=== PATIENT | male | born 1985 | race Caucasian/White ===

== ENCOUNTER 2021-04-29 12:59 | Emergency (ER) | payer OTHER ==
[~2021-04-29] VITALS: Ht 177.8 cm; Wt 134.2 kg
[2021-04-29 13:28] VITALS: BP 119/89
[2021-04-29] MEDS ORDERED: LIDOCAINE/EPI/TETRACAINE TOPICAL GEL 3 ML. TP ONE ×2 (14:00→15:02)
--- NOTE | 2021-04-29 14:12 | PHYS DOC ---
Past Medical History Past Surgical History: Other Additional Past Surgical Histo: ear surgery as a child (ANDRES MOCTEZUMAJacki Hoff RN [facility]) Smoking Status: Never Smoker Alcohol Use: None Social History Narrative: PREVIOUS METH AND MARIJUANA DRUG USE OVER 1 YEAR AGO. (DEMETRIA MOCTEZUMATIFFANIE Hoff RN [facility]) General Adult EDM: Chief Complaint: LACERATION/AVULSION HPI: HPI: Patient is a 36 year old male who presents with here from [facility] when he was sitting on a bunk anyway coming back and hit his head on the back of a metal bar. Rates pain a 2 out of 10. Denies LOC or blood thinners. States his tetanus is up-to-date. (DEMETRIA MOCTEZUMATIFFANIE Hoff RN [facility]) Review of Systems: Review of Systems: Constitutional: Denies fever or chills. [] Eyes: Denies change in visual acuity. [] HENT: Denies nasal congestion or sore throat. [] Respiratory: Denies cough or shortness of breath. [] Cardiovascular: Denies chest pain or edema. [] GI: Denies abdominal pain, nausea, vomiting, bloody stools or diarrhea. [] : Denies dysuria. [] Musculoskeletal: Denies back pain or joint pain. [] Integument: Denies rash. + Laceration to scalp [] Neurologic: +headache, denies focal weakness or sensory changes. [] Endocrine: Denies polyuria or polydipsia. [] Lymphatic: Denies swollen glands. [] Psychiatric: Denies depression or anxiety. [] (AZRASHRUTI RN [facility]) Heart Score: C/O Chest Pain: No (RHIANNASHRUTITIFFANIE Hoff APRN) Current Medications: Current Medications Medications (Trade) Dose Ordered Sig/Wicho Start Time Stop Time Status Last Admin Dose Admin Tetracaine/ Epinephrine/ Lidocaine (Let (Babg-[id number]-[id number]) Gel) 3 ml 1X ONCE 04/29/21 14:00 04/29/21 14:01 UNV (RHIANNASHRUTI M RN [facility]) Physical Exam: PE: Constitutional: Well developed, well nourished, no acute distress, non-toxic appearance. [] HENT: Normocephalic, atraumatic, bilateral external ears normal, oropharynx moist, no oral exudates, nose normal. [] Eyes: PERRLA, EOMI, conjunctiva normal, no discharge. [] Neck: Normal range of motion, no tenderness, supple, no stridor. [] Cardiovascular:Heart rate regular rhythm, no murmur [] Lungs & Thorax: Bilateral breath sounds clear to auscultation [] Abdomen: Bowel sounds normal, soft, no tenderness, no masses, no pulsatile masses. [] Skin: Warm, dry, no erythema, no rash. Scalp laceration approximately 2- 2 1/2 inches long. [] Back: No tenderness, no CVA tenderness. [] Extremities: No tenderness, no cyanosis, no clubbing, ROM intact, no edema. [] Neurologic: Alert and oriented X 3, normal motor function, normal sensory function, no focal deficits noted. [] Psychologic: Affect normal, judgement normal, mood normal. [] (SHRUTI MOCTEZUMA APRN) Current Patient Data: Vital Signs: Vital Signs Date Time Temp Pulse Resp B/P (MAP) Pulse Ox O2 Delivery O2 Flow Rate FiO2 04/29/21 13:28 98.1 107 16 119/89 (99) 99 Room Air 98.1 (SHRUTI MOCTEZUMA APRN) EKG: EKG: [] (SHRUTI MOCTEZUMA APRN) Radiology/Procedures: Radiology/Procedures: [] Impression: [facility] [address] [place], [place] [id number] IMAGING REPORT Signed PATIENT: ABBI CHENG ACCOUNT: [id number] : 1985 LOCATION: ER AGE: 36 SEX: M EXAM STATUS: REG ER ORD. PHYSICIAN: SHRUTI MOCTEZUMA APRN REASON: HEAD INJURY, LACERATION PROCEDURE: CT HEAD WO CONTRAST EXAM: CT Head without IV contrast CLINICAL HISTORY: HEAD INJURY, LACERATION COMPARISON: None. TECHNIQUE: Routine CT of the head without contrast. PQRS compliance statement - One or more of the following individualized dose reduction techniques were utilized for this study: 1. Automated exposure control 2. Adjustment of the mA and/or kV according to patient size 3. Use of iterative reconstruction technique FINDINGS: There is no evidence of hemorrhage, mass or extra-axial fluid collection. Manjarrez-white differentiation is maintained with no evidence of edema. There is no mass effect or shift of the intracranial structures. The ventricles, basilar cisterns and cortical sulci are normal in size and configuration for the patients stated age. The cerebellum and brainstem are unremarkable. The calvarium demonstrates no evidence of fracture or focal lesion. There is normal aeration of the visualized paranasal sinuses and mastoid air cells. The visualized portions of the orbits are normal. IMPRESSION: No evidence for acute intracranial process. Electronically signed by: Navid Rocha MD (04/29/2021 3:17 PM) [facility]ENTER[facility]SEFINA DICTATED and SIGNED BY: NAVID ROCHA MD DATE: 04/29/21 [id number] (SHRUTI MOCTEZUMA APRN) Course & Med Decision Making: Course & Med Decision Making Pertinent Labs and Imaging studies reviewed. (See chart for details) See HPI. Alert and oriented x4. Speaks in full clear sentences. Ambulatory with a steady gait. No cervical spine tenderness. Full range of motion of his neck. Denies any neck pain, back pain, chest pain, headache, dizziness, vision change, numbness or tingling, nausea, vomiting. Bleeding controlled. Laceration repair Location: 2 inches back of head Local anesthesia: LETs Interrupted sutures/Internal sutures: 6 sutures Nerve/ligament/muscle damage: None Cleaning and irrigation: Chlorhexidine and saline The appropriate timeout was taken. The area was prepped and draped in the usual sterile fashion. The wound was copiously irrigated with normal saline and chlorhexidine. Patient tolerated well without complication. Dressing was applied to the area follow-up education is given to observe for signs and symptoms of infection, bleeding and to follow-up promptly if these occur. Patient can return in 48 hours for a wound recheck. Sutures to be removed in 7 to 10 days. [] (SHRUTI MOCTEZUMA APRN) Course & Med Decision Making I have reviewed the PA/PHLEBOTOMY SUPPORT TECH's note and plan of care. I was available for consultation as needed during the patient's visit in the emergency department. I agree with the clinical impression, plan, and disposition. Clarification: The patient had surekha placed rather than suture. (BASIL GAONA MD) Sinan Disclaimer: Sinan Disclaimer: This electronic medical record was generated, in whole or in part, using a voice recognition dictation system. (SHRUTI MOCTEZUMA APRN) Departure Departure Impression: Primary Impression: Laceration of head Qualified Codes: S01.01XA - Laceration without foreign body of scalp, initial encounter Disposition: HOME / SELF CARE / HOMELESS Condition: STABLE Referrals: UNKNOWN PCP NAME (PCP) Patient Instructions: Laceration Care, Adult, Staple Care and Removal, Staple Wound Closure, [id number] Additional Instructions: Wells need to be removed in 10 days. Watch for signs of infection such as redness, increased pain or tenderness, drainage. Return for LOC, vomiting, dizziness or severe headache that cannot be taken care of with Tylenol or ibuprofen. SHRUTI MOCTEZUMA APRN Apr 29, 2021 14:12 BASIL GAONA MD May 01, 2021 06:50
--- NOTE | 2021-04-29 15:20 | RAD ---
EXAM: CT Head without IV contrast CLINICAL HISTORY: HEAD INJURY, LACERATION COMPARISON: None. TECHNIQUE: Routine CT of the head without contrast. PQRS compliance statement - One or more of the following individualized dose reduction techniques wer e utilized for this study: 1. Automated exposure control 2. Adjustment of the mA and/or kV according to patient size 3. Use of iterative reconstruction technique FINDINGS: There is no evidence of hemorrhage, mass or extra-axial fluid collection. Manjarrez-white differentiation is maintained with no evidence of edema. There is no mass effect or shift of the intracranial structures. The ventricles, basilar cisterns and cortical sulci are normal in size and configuration for the cosmo ents stated age. The cerebellum and brainstem are unremarkable. The calvarium demonstrates no evidence of fracture or focal lesion. There is normal aeration of the visualized paranasal sinuses and mastoid air cells. The visualized portions of the orbits are normal. IMPRESSION: No evidence for acute intracranial process. Electronically signed by: Navid Scott MD (04/29/2021 3:17 PM) NIKO
== END 2021-04-29 15:41 | disposition home or self-care (01) ==
LOC: ER 12:59 → EDBD 12:59 → ER 15:41
DX: S01.01XA Laceration without foreign body of scalp, initial encounter (principal); W22.8XXA Striking against or struck by other objects, initial encounter; Y93.89 Activity, other specified; Y92.89 Other specified places as the place of occurrence of the external cause; Y99.8 Other external cause status
CPT/HCPCS: 12001; 12002; 70450; 99284-25